=== PATIENT | male | born 1965 | race Caucasian/White ===

== ENCOUNTER 2017-09-10 08:12 | Emergency (ER) | payer SELFPAY ==
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
[2017-09-10 09:39] LABS: BASOPHILS % 0.4 (0.0-1.5); EOSINOPHILS % 0.3 % (0.0-6.8); MEAN CORPUSCULAR HEMOGLOBIN 31.8 pg (28.0-34.0); MEAN CORPUSCULAR VOLUME 99.7 fl (80.0-100.0); MONOCYTES % 3.1 % (0.0-11.0); NEUTROPHILS # 8.7 # k/uL (1.4-7.7)
[2017-09-10 09:52] LABS: eGFR (African) > 60; eGFR (Non-African) > 60
[2017-09-10] MEDS: KETOROLAC TROMETHAMINE 60 MG/2 ML VIAL IM ONE (10:02)
[2017-09-10 10:50] VITALS: BP 105/76
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
[2017-09-11 07:02] LABS: AMPHETAMINE NEGATIVE ng/mL (<1000); BARBITURATES NEGATIVE ng/mL (<200); CANNABINOIDS NEGATIVE ng/mL (<50); COCAINE NEGATIVE ng/mL (<300); METHAMPHETAMINE NEGATIVE ng/mL (<1000)
== END 2017-09-10 10:30 | disposition home or self-care (01) ==
LOC: ED 08:12
DX: M25.511 Pain in right shoulder (principal); R07.81 Pleurodynia; V89.2XXA Person injured in unspecified motor-vehicle accident, traffic, initial encounter; Y93.9 Activity, unspecified; Y99.9 Unspecified external cause status
CPT/HCPCS: 71020; 71100; 73010; 73110; 73130; 80053; 80320; 85025; J1885; 80377; 96372; 99283; G0480; G0481